=== PATIENT | male | born 1980 | race American Indian/Alaskan Native ===

== ENCOUNTER 2021-01-07 22:10 | Emergency (ER) | payer SELFPAY ==
[2021-01-07 22:18] VITALS: BP 109/73
== END 2021-01-07 23:30 | disposition left against medical advice (07) ==
LOC: ED 22:10
DX: M79.645 Pain in left finger(s) (principal); R12 Heartburn; Z53.21 Procedure and treatment not carried out due to patient leaving prior to being seen by health care provider